=== PATIENT | female | born 1995 | race African-American/Black ===

== ENCOUNTER 2017-10-10 07:38 | Inpatient (IN) | payer OTHER ==
[2017-10-10 08:49] LABS: BASOPHILS # (AUTO) 0.1 10^3/uL (0.0-0.1); BASOPHILS % (AUTO) 1.1 %; EOSINOPHILS # (AUTO) 0.1 10^3/uL (0.0-0.7); HGB - HEMOGLOBIN 9.7 g/dL (12.0-16.0); LYMPHOCYTES # (AUTO) 1.9 10^3/uL (1.5-3.5); LYMPHOCYTES % (AUTO) 24.8 %; MEAN CORPUSCULAR HEMOGLOBIN 26.6 pg (27.0-31.0); MEAN CORPUSCULAR HGB CONC 31.5 g/dL (32.0-36.0); MEAN CORPUSCULAR VOLUME 84.4 fL (81.0-99.0); MEAN PLATELET VOLUME 9.8 fL (7.9-10.8); MONOCYTES % (AUTO) 13.4 %; NEUTROPHILS # (AUTO) 4.5 10^3/uL (1.5-6.6); NEUTROPHILS % (AUTO) 58.7 %; PLT - PLATELET COUNT 280 10^3/uL (130-450); RED BLOOD COUNT 3.66 10^6/uL (4.20-5.40); RED CELL DISTRIBUTION WIDTH 16.8 % (12.0-15.0); WHITE BLOOD COUNT 7.7 x10^3/uL (4.8-10.8)
[2017-10-10 08:54] LABS: URIC ACID 7.8 mg/dL (2.6-7.2)
[2017-10-10] MEDS ORDERED: LACTATED RINGERS 1,000 ML IV ONE ×5 (08:58→12:24)
[2017-10-10 09:10] LABS: PROTEIN/CREATININE RATIO,URINE 15.3 (<=0.2)
[2017-10-10] MEDS ORDERED: SODIUM CHLORIDE FLUSH 0.9% 10 ML SYRINGE IVP PRN ×2 (09:19→11:56)
[2017-10-10] MEDS: MAGNESIUM SULFATE 2 GRAM 2 GM/50 ML BAG IV SCH ×2 (09:40→10:00)
[2017-10-10] MEDS ORDERED: MAGNESIUM SULFATE 2 GRAM 4 GM/100 ML BAG IV ONE (09:42)
[2017-10-10] MEDS ORDERED: MAGNESIUM SULFATE IN WATER 20 GM/500 ML IV.SOLN IV ONE ×2 (09:43→22:25)
[2017-10-10] MEDS ORDERED: LACTATED RINGERS 1,000 ML IV SCH (10:00)
[2017-10-10] MEDS ORDERED: CITRIC ACID/SODIUM CITRATE 15 ML UDC PO ONE (10:08)
[2017-10-10] MEDS ORDERED: MAGNESIUM SULFATE IN WATER 20 GM/500 ML IV.SOLN IV SCH (10:10)
[2017-10-10] MEDS ORDERED: diphenhydrAMINE 25 MG CAPSULE PO PRN (12:01)
[2017-10-10] MEDS ORDERED: ONDANSETRON 4 MG/2 ML VIAL IVP PRN (12:01)
[2017-10-10] MEDS ORDERED: oxyCOD/ACETAMIN 5 MG/325 MG TABLET PO PRN ×2 (12:01→12:16)
[2017-10-10] MEDS ORDERED: OXYTOCIN 10 UNIT/ML VIAL IVP ONE (12:17)
[2017-10-10] MEDS ORDERED: MAGNESIUM SULFATE 1 GM/2 ML VIAL IV ONE (13:00)
--- NOTE | 2017-10-10 13:09 | PROCEDURE REPORT ---
Hospitalist Procedure Note - Procedure Note Procedure Note: POST-OPERATIVE NOTE: PRE-OP DX: 39 WEEKS, PREECLAMPSIA WITH SEVERE FEATURES, NON-REASSURING HEART TRACING (CATEGORY 3) POST-OP DX: SAME SURGERY: LUST SURGEON: CATALINO MANUFACTURING APPLICATIONS ENGINEER: DUNCAN BIOMEDICAL EQUIPMENT SUPPORT SPECIALIST: TAB ANS: SPINAL FINDINGS: NORMAL ADNEXL BL WITH CLEAR AMNIOTIC FLUID UPON ENTRY INTO UTERINE CAVITY, NO ADHESIONS, VIABLE FEMALE (WT. PENDING) WITH SCORE 9/9 DELIVERED AT 1044 HOURS. DRAIN: NEFF SPECIMEN: CORD GASES FLUIDS (ML): LR 1,000 EBL 600 UO 130 COMPLICATION: NONE CONDITION: STABLE
[2017-10-10] MEDS: KETOROLAC 30 MG/ML VIAL IV SCH ×2 (13:17→17:15)
--- NOTE | 2017-10-10 14:09 | HISTORY & PHYSICAL EXAMINATION ---
Chief Complaint - Chief Complaint Chief Complaint: VISUAL CHANGES History of Present Illness - Admitted From Admitted From:: HOME TO [facility] - History Obtained From Records Reviewed: YES History obtained from: PATIENT Exam Limitations: NONE - History of Present Illness HPI Comment/Other: 21 y.o. AD [place] EDC 10/17/17 by LMP 01/10/17 and first and second trim US that agree, admitted shortly presentation to [facility] triage with dx of preeclampsia with severe features further complicated by Category 2 then Category 3 FHR tracing with mild and regular uterine contractions and closed cervix in clinic two days prior. She was admitted for immediate Section. OB recoreds available show unremarkable 13 and 20 week US with normal anatomic survey. Also had normal first trimester NIPT Negative. Labs: Initial OB panel unavailable. 28 weeks labs unavailable GBS + 10/02/17 Wet prep + for yeast 10/02/17 (treated) Wet prep + for BV not treated per patient hx PMH: Neg PSH: Neg SHx: Neg for smoking/etoh/drugs Meds: PNV KNDA History - Past Medical History Cardiovascular: reports: None Respiratory: reports: None Neuro: reports: None Endocrine/Autoimmune: reports: None GI: reports: None STAFF ASSISTANT: reports: None : reports: None HEENT: reports: None Psych: reports: None Musculoskeletal: reports: None Derm: reports: None - Past Surgical History Other past surgical history: NONE Meds/Allgy - Allergies Allergies/Adverse Reactions: Allergies Allergy/AdvReac Type Severity Reaction Status Date / Time No Known Drug Allergies Allergy Verified 10/10/17 14:11 Review of Systems - Eyes Eyes: reports: Blurred vision - Musculoskeletal Musculoskeletal: reports: Other (MARKED SWELLING IN BOTH LOWER EXTREMITIES) Exam - Vital Signs Vital Signs: Vital Signs x48h Temp Pulse Resp BP Pulse Ox 10/10/17 12:55 36.8 C 71 18 148/99 H 98 10/10/17 12:30 100 10/10/17 12:10 98 10/10/17 12:00 98 10/10/17 11:58 98 10/10/17 11:50 98 10/10/17 11:42 100 10/10/17 07:54 36.8 C 97 18 140/101 H 98 - Physical Exam General Appearance: positive: Mild distress Eyes Bilateral: positive: Normal inspection ENT: positive: ENT inspection nml Neck: positive: Nml inspection Respiratory: positive: Chest non-tender Cardiovascular: positive: Regular rate & rhythm Abdomen: positive: Non-tender Back: positive: Nml inspection Skin: positive: Color nml, No rash, Warm Extremities: positive: Pedal edema, Other (BL MARKED PEDAL AND LOWER EXTREMITY EDEMA CONSISTENT WITH DX) Conclusion/Plan - Lab Results Fish Bones: 10/10/17 08:38 Core Measures - Anticipated LOS I expect patient to be DC'd or transferred within 96 hours.: Yes - Issues Hospital Issues and Management Plan: IMPRESSION/PLAN: # 21 yo 39 0/7 weeks by good dates # Preeclampsia with severe features based on bp, labs, symptoms # Category 3 heart rate tracing at its worst far from delivery # Admit for immediate Section. Standard orders. Membranes intact. Peds to be notified about +GBS status. # OB labs unavailable except for 37+ week GBS testing and wet prep and first trim NIPT and 13 and 20 wk US OB panel ordered post-delivery. Plan: Immediate Section. See permit. - DVT/VTE - Prophylaxis VTE/DVT Device ordered at admit?: No Not Ordered - Low Risk: Low Risk
[2017-10-10 14:20] LABS: CALCIUM 7.4 mg/dL (8.5-10.3); CREATININE 0.6 mg/dL (0.4-1.0)
[2017-10-10] MEDS: LABETALOL 100 MG TABLET PO SCH ×2 (15:47→18:38)
[2017-10-10] MEDS: SIMETHICONE CHEW 80 MG TABLET PO SCH ×2 (15:47→22:19)
[2017-10-10] MEDS ORDERED: diphenhydrAMINE INJ 50 MG/ML VIAL IVP PRN (16:06)
[2017-10-10] MEDS ORDERED: SODIUM CHLORIDE FLUSH 0.9% 10 ML SYRINGE IVP SCH (17:00)
[2017-10-10] MEDS: LACTATED RINGERS 1,000 ML IV SCH ×2 (17:31→22:19)
--- NOTE | 2017-10-10 18:20 | OPERATIVE REPORT ---
DATE OF SERVICE: 10/10/2017 Physician: Bertin Savage DO PREOPERATIVE DIAGNOSES 1. 39 weeks gestation. 2. Preeclampsia with severe features. 3. Nonreassuring heart rate tracing (category 3). POSTOPERATIVE DIAGNOSIS 1. 39 weeks gestation. 2. Preeclampsia with severe features. 3. Nonreassuring heart rate tracing (category 3). SURGERY PERFORMED: Low transverse section. SURGEON: Bertin Savage D.O. HEALTHCARE RECEPTIONIST: Razia Nova CNM. FELTING MACHINE OPERATOR HELPER: Karishma Crabtree CRNA. ANESTHESIA: Spinal. INTRAOPERATIVE FINDINGS: Normal adnexa bilaterally with clear amniotic fluid upon entry into the uterine cavity, there were no pelvic adhesions. The delivery was productive of a viable female infant with Apgars of 9 and 9 that delivered at 10:44 hours. Weight is pending at the time of this dictation. DRAIN: A Castellano. SPECIMEN SUBMITTED: Cord gases, results not available at this time. INTRAOPERATIVE FLUIDS: Lactated ringers 1000 mL. ESTIMATED BLOOD LOSS: 600 mL. URINE OUTPUT: 130 mL. COMPLICATIONS: None. CONDITION: Stable. DESCRIPTION OF PROCEDURE: The patient was thoroughly counseled and consented prior to surgery. She was taken to the operating room where she was anesthetized successfully with a spinal anesthesia, placed in supine position with a right hip roll, prepped and draped in routine fashion with a Castellano catheter in place and adequate anesthetic level was confirmed. A timeout was then performed according to hospital policy. A Pfannenstiel incision was made. Sharp dissection was carried down to the level of the fascia, which was nicked on both sides of the midline. The fascial incision was extended laterally and upward sharply. The peritoneal cavity was entered bluntly. Bladder blade inserted. A bladder flap created and a low transverse uterine incision was made sharply with the scalpel, which was extended laterally and upwards with bandage scissors prior to rupture of membranes. The amniotic membranes were ruptured. Clear fluid was noted. The head was elevated easily through the uterine incision and with fundal pressure the infant was delivered through the uterine incision without complication. The umbilical cord was clamped x2, cut between the clamps and the infant was handed to the loan coordinator. The patient received 2 grams of IV Ancef preoperatively. After the was handed to the loan coordinator, a segment of umbilical cord was set aside for cord gases. Cord blood was obtained. The placenta delivered spontaneously. The uterus was exteriorized with a moist laparotomy sponge. The uterine incision was closed with 2 layers of running #1 chromic, followed by several figure of eight sutures of #1 chromic for hemostasis. The posterior and anterior gutters were suctioned and noted to be dry. The pericolic gutters were free of fluid and clots. The uterine incision was inspected and noted to be dry. Peritoneal edges and muscle bellies were dry. All instruments were removed from the abdomen and pelvis. The fascia was closed with a running #1 Vicryl. The subcutaneous fat irrigated, suctioned and noted to be dry. The skin was reapproximated with a running subcuticular suture of 3-0 Monocryl, followed by Steri-Strips and sterile dressing. All sponge, needle and instrument counts were correct. The patient was transferred to the recovery area in good condition. TD: 10/10/2017 13:54 YOLANDA
[2017-10-10 19:08] LABS: BASOPHILS % (AUTO) 0.3 %; EOSINOPHILS % (AUTO) 0.1 %; LYMPHOCYTES # (AUTO) 1.1 10^3/uL (1.5-3.5); LYMPHOCYTES % (AUTO) 8.9 %; MEAN CORPUSCULAR HEMOGLOBIN 26.5 pg (27.0-31.0); MEAN CORPUSCULAR HGB CONC 31.3 g/dL (32.0-36.0); MEAN CORPUSCULAR VOLUME 84.7 fL (81.0-99.0); MEAN PLATELET VOLUME 9.6 fL (7.9-10.8); MONOCYTES # (AUTO) 1.1 10^3/uL (0.0-1.0); MONOCYTES % (AUTO) 9.2 %; NEUTROPHILS # (AUTO) 9.9 10^3/uL (1.5-6.6); NEUTROPHILS % (AUTO) 81.5 %; PLT - PLATELET COUNT 257 10^3/uL (130-450); RED BLOOD COUNT 3.03 10^6/uL (4.20-5.40); RED CELL DISTRIBUTION WIDTH 16.4 % (12.0-15.0); WHITE BLOOD COUNT 12.1 x10^3/uL (4.8-10.8)
[2017-10-10 19:22] LABS: URIC ACID 7.3 mg/dL (2.6-7.2)
[2017-10-10] MEDS: SODIUM CHLORIDE FLUSH 0.9% 10 ML SYRINGE IVP SCH (20:11)
[2017-10-10] MEDS ORDERED: DOCUSATE SODIUM 100 MG CAPSULE PO SCH (21:00)
[2017-10-11] MEDS: SODIUM CHLORIDE FLUSH 0.9% 10 ML SYRINGE IVP SCH ×3 (03:07→20:09)
[2017-10-11] MEDS: KETOROLAC 30 MG/ML VIAL IV SCH ×2 (03:07→08:57)
[2017-10-11] MEDS: LACTATED RINGERS 1,000 ML IV SCH ×2 (03:07→18:13)
[2017-10-11] MEDS: LABETALOL 100 MG TABLET PO SCH ×3 (03:08→20:05)
[2017-10-11 06:12] LABS: BASOPHILS % (AUTO) 0.1 %; EOSINOPHILS # (AUTO) 0.1 10^3/uL (0.0-0.7); EOSINOPHILS % (AUTO) 0.8 %; HGB - HEMOGLOBIN 7.7 g/dL (12.0-16.0); LYMPHOCYTES # (AUTO) 1.4 10^3/uL (1.5-3.5); LYMPHOCYTES % (AUTO) 12.7 %; MEAN CORPUSCULAR HEMOGLOBIN 26.3 pg (27.0-31.0); MEAN CORPUSCULAR HGB CONC 31.1 g/dL (32.0-36.0); MEAN CORPUSCULAR VOLUME 84.5 fL (81.0-99.0); MEAN PLATELET VOLUME 9.3 fL (7.9-10.8); MONOCYTES # (AUTO) 1.6 10^3/uL (0.0-1.0); MONOCYTES % (AUTO) 14.6 %; NEUTROPHILS # (AUTO) 8.1 10^3/uL (1.5-6.6); NEUTROPHILS % (AUTO) 71.8 %; PLT - PLATELET COUNT 240 10^3/uL (130-450); RED BLOOD COUNT 2.94 10^6/uL (4.20-5.40); RED CELL DISTRIBUTION WIDTH 16.5 % (12.0-15.0); WHITE BLOOD COUNT 11.3 x10^3/uL (4.8-10.8)
[2017-10-11 06:22] LABS: URIC ACID 7.6 mg/dL (2.6-7.2)
[2017-10-11] MEDS: SIMETHICONE CHEW 80 MG TABLET PO SCH ×3 (06:48→20:06)
--- NOTE | 2017-10-11 08:29 | PROVIDER PROGRESS NOTE ---
Subjective - Prog Note Date Prog Note Date: 10/11/17 Prog Note Time: 08:25 - Subjective Pt reports feeling: Improved Subjective: LOADING INSPECTOR: S: POD 1 s/p LUST C/S for Category 3 tracing far from delivery, Preeclampsia with severe features. Visual changes resolved, tolerating diet, having difficulty with swallowing pills. O: VSS/AF, beginning to diurese at 350 mL/hr See labs CV RRR LCTAB ABD SNT, Ux firm U-6, dressing firm : normal lochia MS/NM: N/C, SCDs on, decreased swelling in legs from yesterday, patient feels less pain from swellin also. A/P: POD #1 doing well D/C IV magnesium sulfate at 1200 Ambulate after off magnesium sulfate D/C smith once ambulatory Switch to liquid meds instead of pill for patient convenience saline lock once off IV magnesium sulfate Remove dressing after patient showers Objective - Vital Signs/Intake & Output Vital Signs: Vital Signs x48h Temp Pulse Resp BP Pulse Ox 10/11/17 06:46 20 125/88 H 10/11/17 02:55 36.4 C L 84 15 143/85 H 98 Intake & Output: Intake & Output 10/08/1718 10/10/17 10/11/17 23:59 23:59 23:59 23:59 Intake Total 1440 960 Output Total 935 825 Balance 505 135 - Lab Results Fish Bones: 10/11/17 06:00 10/10/17 14:00 Other Labs: Lab Results x24hrs 10/11/17 10/11/17 10/11/17 Range/Units 06:00 06:00 06:00 WBC 11.3 H (4.8-10.8) x10^3/uL RBC 2.94 L (4.20-5.40) 10^6/uL Hgb 7.7 L (12.0-16.0) g/dL Hct 24.9 L (37.0-47.0) % MCV 84.5 (81.0-99.0) fL MCH 26.3 L (27.0-31.0) pg MCHC 31.1 L (32.0-36.0) g/dL RDW 16.5 H (12.0-15.0) % Plt Count 240 (130-450) 10^3/uL MPV 9.3 (7.9-10.8) fL Neut # (Auto) 8.1 H (1.5-6.6) 10^3/uL Lymph # (Auto) 1.4 L (1.5-3.5) 10^3/uL [place] # (Auto) 1.6 H (0.0-1.0) 10^3/uL Eos # (Auto) 0.1 (0.0-0.7) 10^3/uL Baso # (Auto) 0.0 (0.0-0.1) 10^3/uL Absolute Nucleated RBC 0.03 x10^3/uL Nucleated RBC % 0.2 /100WBC Sodium (135-145) mmol/L Potassium (3.5-5.0) mmol/L Chloride (101-111) mmol/L Carbon Dioxide (21-32) mmol/L Anion Gap (6-13) BUN (6-20) mg/dL Creatinine (0.4-1.0) mg/dL Estimated GFR (MDRD) (>89) Glucose (70-100) mg/dL Uric Acid 7.6 H (2.6-7.2) mg/dL Calcium (8.5-10.3) mg/dL AST 33 (10-42) IU/L Lactate Dehydrogenase 359 H (91-225) IU/L Urine Creatinine mg/dL Ur Total Protein Timed mg/dL Protein/Creatinin Ratio (<=0.2) Rubella IgG Antibody IU/mL Blood Type 10/10/17 10/10/17 10/10/17 Range/Units 19:00 19:00 19:00 WBC 12.1 H (4.8-10.8) x10^3/uL RBC 3.03 L (4.20-5.40) 10^6/uL Hgb 8.0 L (12.0-16.0) g/dL Hct 25.7 L (37.0-47.0) % MCV 84.7 (81.0-99.0) fL MCH 26.5 L (27.0-31.0) pg MCHC 31.3 L (32.0-36.0) g/dL RDW 16.4 H (12.0-15.0) % Plt Count 257 (130-450) 10^3/uL MPV 9.6 (7.9-10.8) fL Neut # (Auto) 9.9 H (1.5-6.6) 10^3/uL Lymph # (Auto) 1.1 L (1.5-3.5) 10^3/uL [place] # (Auto) 1.1 H (0.0-1.0) 10^3/uL Eos # (Auto) 0.0 (0.0-0.7) 10^3/uL Baso # (Auto) 0.0 (0.0-0.1) 10^3/uL Absolute Nucleated RBC 0.01 x10^3/uL Nucleated RBC % 0.1 /100WBC Sodium (135-145) mmol/L Potassium (3.5-5.0) mmol/L Chloride (101-111) mmol/L Carbon Dioxide (21-32) mmol/L Anion Gap (6-13) BUN (6-20) mg/dL Creatinine (0.4-1.0) mg/dL Estimated GFR (MDRD) (>89) Glucose (70-100) mg/dL Uric Acid 7.3 H (2.6-7.2) mg/dL Calcium (8.5-10.3) mg/dL AST 31 (10-42) IU/L Lactate Dehydrogenase 296 H (91-225) IU/L Urine Creatinine mg/dL Ur Total Protein Timed mg/dL Protein/Creatinin Ratio (<=0.2) Rubella IgG Antibody IU/mL Blood Type 10/10/17 10/10/17 10/10/17 Range/Units 14:00 14:00 14:00 WBC (4.8-10.8) x10^3/uL RBC (4.20-5.40) 10^6/uL Hgb (12.0-16.0) g/dL Hct (37.0-47.0) % MCV (81.0-99.0) fL MCH (27.0-31.0) pg MCHC (32.0-36.0) g/dL RDW (12.0-15.0) % Plt Count (130-450) 10^3/uL MPV (7.9-10.8) fL Neut # (Auto) (1.5-6.6) 10^3/uL Lymph # (Auto) (1.5-3.5) 10^3/uL [place] # (Auto) (0.0-1.0) 10^3/uL Eos # (Auto) (0.0-0.7) 10^3/uL Baso # (Auto) (0.0-0.1) 10^3/uL Absolute Nucleated RBC x10^3/uL Nucleated RBC % /100WBC Sodium 133 L (135-145) mmol/L Potassium 3.4 L (3.5-5.0) mmol/L Chloride 103 (101-111) mmol/L Carbon Dioxide 22 (21-32) mmol/L Anion Gap 8.0 (6-13) BUN 5 L (6-20) mg/dL Creatinine 0.6 (0.4-1.0) mg/dL Estimated GFR (MDRD) 154 (>89) Glucose 94 (70-100) mg/dL Uric Acid (2.6-7.2) mg/dL Calcium 7.4 L (8.5-10.3) mg/dL AST (10-42) IU/L Lactate Dehydrogenase (91-225) IU/L Urine Creatinine mg/dL Ur Total Protein Timed mg/dL Protein/Creatinin Ratio (<=0.2) Rubella IgG Antibody 19 (POS) IU/mL Blood Type O POSITIVE 10/10/17 10/10/17 10/10/17 Range/Units 08:38 08:38 08:38 WBC 7.7 (4.8-10.8) x10^3/uL RBC 3.66 L (4.20-5.40) 10^6/uL Hgb 9.7 L (12.0-16.0) g/dL Hct 30.9 L (37.0-47.0) % MCV 84.4 (81.0-99.0) fL MCH 26.6 L (27.0-31.0) pg MCHC 31.5 L (32.0-36.0) g/dL RDW 16.8 H (12.0-15.0) % Plt Count 280 (130-450) 10^3/uL MPV 9.8 (7.9-10.8) fL Neut # (Auto) 4.5 (1.5-6.6) 10^3/uL Lymph # (Auto) 1.9 (1.5-3.5) 10^3/uL [place] # (Auto) 1.0 (0.0-1.0) 10^3/uL Eos # (Auto) 0.1 (0.0-0.7) 10^3/uL Baso # (Auto) 0.1 (0.0-0.1) 10^3/uL Absolute Nucleated RBC 0.06 x10^3/uL Nucleated RBC % 0.8 /100WBC Sodium (135-145) mmol/L Potassium (3.5-5.0) mmol/L Chloride (101-111) mmol/L Carbon Dioxide (21-32) mmol/L Anion Gap (6-13) BUN (6-20) mg/dL Creatinine (0.4-1.0) mg/dL Estimated GFR (MDRD) (>89) Glucose (70-100) mg/dL Uric Acid 7.8 H (2.6-7.2) mg/dL Calcium (8.5-10.3) mg/dL AST 26 (10-42) IU/L Lactate Dehydrogenase 257 H (91-225) IU/L Urine Creatinine mg/dL Ur Total Protein Timed mg/dL Protein/Creatinin Ratio (<=0.2) Rubella IgG Antibody IU/mL Blood Type 10/10/17 Range/Units 08:25 WBC (4.8-10.8) x10^3/uL RBC (4.20-5.40) 10^6/uL Hgb (12.0-16.0) g/dL Hct (37.0-47.0) % MCV (81.0-99.0) fL MCH (27.0-31.0) pg MCHC (32.0-36.0) g/dL RDW (12.0-15.0) % Plt Count (130-450) 10^3/uL MPV (7.9-10.8) fL Neut # (Auto) (1.5-6.6) 10^3/uL Lymph # (Auto) (1.5-3.5) 10^3/uL [place] # (Auto) (0.0-1.0) 10^3/uL Eos # (Auto) (0.0-0.7) 10^3/uL Baso # (Auto) (0.0-0.1) 10^3/uL Absolute Nucleated RBC x10^3/uL Nucleated RBC % /100WBC Sodium (135-145) mmol/L Potassium (3.5-5.0) mmol/L Chloride (101-111) mmol/L Carbon Dioxide (21-32) mmol/L Anion Gap (6-13) BUN (6-20) mg/dL Creatinine (0.4-1.0) mg/dL Estimated GFR (MDRD) (>89) Glucose (70-100) mg/dL Uric Acid (2.6-7.2) mg/dL Calcium (8.5-10.3) mg/dL AST (10-42) IU/L Lactate Dehydrogenase (91-225) IU/L Urine Creatinine 107.0 mg/dL Ur Total Protein Timed 1638 mg/dL Protein/Creatinin Ratio 15.3 H (<=0.2) Rubella IgG Antibody IU/mL Blood Type
[2017-10-11] MEDS ORDERED: MAGNESIUM SULFATE 2 GRAM 2 GM/50 ML BAG IV ONE ×2 (08:35→10:41)
[2017-10-11] MEDS: DOCUSATE SODIUM 100 MG/10 ML UDC PO SCH ×2 (08:57→20:47)
[2017-10-11] MEDS ORDERED: ePHEDrine 50 MG/ML AMP IVP ONE (11:00)
[2017-10-11] MEDS ORDERED: OXYTOCIN 10 UNIT/ML VIAL IV ONE (11:00)
[2017-10-11] MEDS ORDERED: MORPHINE PF 5 MG/10 ML AMP EP ONE (11:00)
[2017-10-11] MEDS ORDERED: ONDANSETRON 4 MG/2 ML VIAL IVP ONE (11:00)
[2017-10-11 13:28] LABS: HIV AG/AB 4TH GEN NON-REACTIVE (NON-REACTIVE)
[2017-10-11 13:44] LABS: HEPATITIS B SURFACE ANTIGEN NON-REACTIVE (NON-REACTIVE)
[2017-10-11] MEDS: IBUPROFEN 100 MG/5 ML UDC PO PRN ×2 (15:05→23:42)
[2017-10-11] MEDS: ACETAMINOPHEN 160 MG/5 ML SUSP UDC PO PRN ×2 (16:09→20:07)
[2017-10-11] MEDS: oxyCODONE 10 MG/0.5 ML SYRINGE PO PRN ×3 (16:10→23:45)
[2017-10-11] MEDS: MAGNESIUM HYDROXIDE 2,400 MG/30 ML UDC PO PRN (20:54)
[2017-10-12] MEDS: SODIUM CHLORIDE FLUSH 0.9% 10 ML SYRINGE IVP SCH ×3 (04:36→17:03)
[2017-10-12] MEDS: oxyCODONE 10 MG/0.5 ML SYRINGE PO PRN ×6 (04:47→22:04)
[2017-10-12] MEDS: ACETAMINOPHEN 160 MG/5 ML SUSP UDC PO PRN ×5 (04:47→20:47)
[2017-10-12] MEDS: LACTATED RINGERS 1,000 ML IV SCH ×2 (04:53→17:00)
[2017-10-12] MEDS: LABETALOL 100 MG TABLET PO SCH ×2 (08:07→19:44)
[2017-10-12] MEDS: IBUPROFEN 100 MG/5 ML UDC PO PRN ×2 (08:09→15:44)
[2017-10-12] MEDS: SIMETHICONE CHEW 80 MG TABLET PO SCH ×3 (08:42→22:13)
[2017-10-12] MEDS: DOCUSATE SODIUM 100 MG/10 ML UDC PO SCH ×2 (12:27→20:59)
--- NOTE | 2017-10-12 12:31 | PROVIDER PROGRESS NOTE ---
Subjective - Prog Note Date Prog Note Date: 10/12/17 Prog Note Time: 12:23 - Subjective Pt reports feeling: Improved Subjective: GEOLOGICAL SURVEY FIELD ASSISTANT: POD #2 S/P LUST C/S FOR CATEGORY 3 TRACING, PREECLAMPSIA WITH SEVERE FEATURES FAR FROM DELIVERY S: Patient c/o pain medication not lasting full 4 hours, currently on liquid oxycodone q4h. Called by nurse this AM due to sytolic bp in 160s and diastolic bp 109. Labetolol doubled from 100 mg bid to 200 mg bid. BP now normalized. Patient otherwise feels well. States pain/edema in both lower extremities have gone down markedly, pain was rated 10/10 upon presentation, now 3/10. O: VSS/AF CV RRR LCTAB ABD SNT, UX firm U-8 and NT Incision clean and dry without erythema : normal lochia MS/NM: SCDs on, both LE with markedly less edema than admission UO 4750 mL and 2825 mL last 48 and 24 hours respectively A/P: # HTN: Labetolol increased to 200 MG bid # Pain Control: Oxycodone dosing interval shortened to 3H # Wlll keep patient another day for observation and bp management. Patient understands and agrees. Objective - Vital Signs/Intake & Output Vital Signs: Vital Signs x48h Temp Pulse Resp BP Pulse Ox 10/12/17 09:39 125/86 H 10/12/17 07:53 169/109 H 10/12/17 07:50 36.8 C 84 16 158/109 H 100 10/12/17 04:32 36.5 C 89 18 141/96 H 98 Intake & Output: Intake & Output 10/09/17 10/10/17 10/11/17 10/12/17 23:59 23:59 23:59 23:59 Intake Total 1440 3256.667 1200 Output Total 935 4750 2825 Balance 505 1493.333 -6765 - Lab Results Fish Bones: 10/11/17 06:00 10/10/17 14:00 Other Labs: Lab Results x24hrs 10/10/17 10/10/17 10/10/17 Range/Units 14:00 14:00 12:00 C.trachomatis RNA (TMA) NOT DETECTED (NOT DETECTED) Chlamydia/GC Comment SEE NOTE Hep Bs Antigen NON-REACTIVE (NON-REACTIVE) HIV 1&2 Ag/Ab, 4th Gen NON-REACTIVE (NON-REACTIVE) N.gonorrhoeae RNA (TMA) NOT DETECTED (NOT DETECTED)
[2017-10-12] MEDS: MAGNESIUM HYDROXIDE 2,400 MG/30 ML UDC PO PRN (20:47)
[2017-10-13] MEDS: ACETAMINOPHEN 160 MG/5 ML SUSP UDC PO PRN ×4 (00:18→13:48)
[2017-10-13] MEDS: IBUPROFEN 100 MG/5 ML UDC PO PRN ×2 (00:20→08:28)
[2017-10-13] MEDS: oxyCODONE 10 MG/0.5 ML SYRINGE PO PRN ×4 (01:06→13:48)
[2017-10-13] MEDS: SODIUM CHLORIDE FLUSH 0.9% 10 ML SYRINGE IVP SCH (04:29)
[2017-10-13] MEDS: SIMETHICONE CHEW 80 MG TABLET PO SCH ×3 (05:56→13:48)
[2017-10-13] MEDS: DOCUSATE SODIUM 100 MG/10 ML UDC PO SCH (08:27)
[2017-10-13] MEDS: LABETALOL 100 MG TABLET PO SCH (08:27)
--- NOTE | 2017-10-13 11:47 | Discharge Plan ---
Discharge Plan Disposition: Home, Self Care Condition: Good Prescriptions: Labetalol [Trandate] 100 mg PO DAILY 30 Days #150 tablet Diet: Regular Activity Restrictions: SEE D/C INSTRUCTIONS Shower Restrictions: No Driving Restrictions: Yes (3 WEEKS) Weight Bearing: Full Weight Additional Instructions or Follow Up instructions: FOLLOW UP IN [facility] IN 1,3, AND 6 WEEKS POST OP FOR BOTH BP CHECK AND POST-OP/ CHECKS. No Smoking: If you smoke, Please STOP! Call for help. Follow-up with: John Parker MD [Provider Admit Priv/Credential] -
--- NOTE | 2017-10-13 11:57 | DISCHARGE SUMMARY ---
"Discharge Summary Admit Date: 10/10/17 Discharge Date: 10/13/17 Discharging Provider: CATALINO Code Status: Attempt Resuscitation Condition at Discharge: Good - DIAGNOSES Admission Diagnoses: 39 WEEKS GESTATION NON-REASSURING TRACING, CATEGORY 3 PREECLAMPSIA WITH SEVERE FEATURES Discharge Diagnoses with Status of Each Condition: 39 WEEKS GESTATION, DELIVERED, GOOD CONDITION PREECLAMPSIA WITH SEVERE FEATURES, DELIVERED, STABLE - HPI History of Present Illness: [address] [id number] 21 y.o. AD [place] EDC 10/17/17 by LMP 01/10/17 and first and second trim US that agree, admitted shortly presentation to [facility] triage with dx of preeclampsia with severe features further complicated by Category 2 then Category 3 FHR tracing with mild and regular uterine contractions and closed cervix in clinic two days prior. She was admitted for immediate Section. OB recoreds available show unremarkable 13 and 20 week US with normal anatomic survey. Also had normal first trimester NIPT Negative. Labs: Initial OB panel unavailable. 28 weeks labs unavailable GBS + 10/02/17 Wet prep + for yeast 10/02/17 (treated) Wet prep + for BV not treated per patient hx PMH: Neg PSH: Neg SHx: Neg for smoking/etoh/drugs Meds: PNV KNDA History - Past Medical History Cardiovascular: reports: None Respiratory: reports: None Neuro: reports: None Endocrine/Autoimmune: reports: None GI: reports: None SHIRT TRIMMER: reports: None : reports: None HEENT: reports: None Psych: reports: None Musculoskeletal: reports: None Derm: reports: None - Past Surgical History Other past surgical history: NONE Meds/Allgy - Allergies Allergies/Adverse Reactions: Allergies Allergy/AdvReac Type Severity Reaction Status Date / Time No Known Drug Allergies Allergy Verified 10/10/17 14:11 - CONSULTS | PROCEDURES Procedures: SPINAL ANESTHESIA LOW TRANSVERSE - HOSPITAL COURSE Hospital Course: The patient was admitted to the hospital, started on IV Magnesium Sulfate Prophylaxis for Preeclampsia with severe features and counseled and consented for immediate Section for Category 3 tracing far from delivery. Her preeclamptic labs on admission were as follows: HCT/PLT: 30.9/280 Uric Acid 7.8 AST 26 LDH 257 Protein/Creatinine Ratio 15.3 She had an uncomplicated LUST productive of a viable female (7 lbs. 6 onz) with 9/9. Post-operatively she did well. She was on IV Magnesium Sulfate for 24 hours post-op and required oral labetolol for bp control beginning the afternoon of surgery, initially at 100 mg bid and subsequently increased to 200 mg bid. Discharged home on 200 mg in AM, 100 mg at noon, and 200 mg in PM. Discharged home on POD #3. OB panel labs drawn on admission as follows: T Pallidum IgG: Neg GC/CT: Neg x 2 HBsAg: NR HIV: NR Rubella: POS - ALLERGIES Allergies/Adverse Reactions: Allergies Allergy/AdvReac Type Severity Reaction Status Date / Time No Known Drug Allergies Allergy Verified 10/10/17 14:11 - MEDICATIONS Home Medications: Ambulatory Orders Medication Instructions Recorded Confirmed Ibuprofen 600 mg PO Q6H PRN 10/13/17 10/13/17 Labetalol [Trandate] 100 mg PO DAILY 30 Days #150 tablet 10/13/17 oxyCODONE/ACET 5/325 [Percocet 5 5 mg PO Q6H PRN 10/13/17 10/13/17 mg/325 mg] Home Medications Other | Comments: VITAMINS: ONE PO DAILY - PHYSICAL EXAM AT DISCHARGE General Appearance: positive: No acute distress, Alert Eyes Bilateral: positive: Normal inspection ENT: positive: ENT inspection nml Neck: positive: Nml inspection Respiratory: positive: Chest non-tender, No respiratory distress, Breath sounds nml Cardiovascular: positive: Regular rate & rhythm, No murmur, No gallop Peripheral Pulses: positive: 2+ Abdomen: positive: Non-tender, Other (UX FIRM U-8, INCISION CLEAN AND DRY WITHOUT ERYTHEMA, STERIS INTACT) Back: positive: Nml inspection Skin: positive: Color nml, No rash, Warm Extremities: positive: Non-tender, Full ROM, Pedal edema (LOWER EXTREMITY EDEMA MARKEDLY LESS, NO CALF PAIN) - LABS Result Diagrams: 10/11/17 06:00 10/10/17 14:00 - FOLLOW UP Follow Up: FOLLOW UP IN [facility] IN 1,3, AND 6 WEEKS FOR BP AND POST- OP CHECKS. - TIME SPENT Time Spent in Discharge (Minutes): 90"
[2017-10-13 14:44] VITALS: BP 138/95
== END 2017-10-13 14:25 | disposition home or self-care (01) | DRG 766 ==
LOC: WFO 07:38 → FBP 07:40 → WFO 09:18 → FBP 09:19
PROVIDERS: ADMIT Obstetrics & Gynecology; ATTEND Obstetrics & Gynecology
PROC: 10D00Z1 Extraction of Products of Conception, Low, Open Approach (ICD-10-PCS; principal; 2017-10-10 09:30)
DX: O14.14 Severe pre-eclampsia complicating childbirth (principal); O99.824 Streptococcus B carrier state complicating childbirth; O76 Abnormality in fetal heart rate and rhythm complicating labor and delivery; Z3A.39 39 weeks gestation of pregnancy; Z37.0 Single live birth
CPT/HCPCS: 36415; 80048; 82570; 82803; 83615; 84156; 84450; 84550; 85025; 86762; 86780; 86900; 86901; 87340; 87389; 87491; 87591; 99213

== ENCOUNTER 2017-10-15 10:44 | Outpatient (CLI) | payer OTHER ==
--- NOTE | 2017-10-15 11:46 | PROVIDER PROGRESS NOTE ---
Subjective - Prog Note Date Prog Note Date: 10/15/17 Prog Note Time: 11:38 - Subjective Pt reports feeling: Improved Subjective: PIPELINE SYSTEMS OPERATOR EMERGENCY COMMUNICATIONS OPERATOR: S: 21 yo s/p C/S 10/10/17 for preeclampsia with severe features and category 3 FHR tracing far from delivery. Patient placed on Labetolol post-op, d /c home 10/13/17 on Labetolol in divided doses of 200 mg...100 mg...200 mg. Comes in to clinic today for first of three follow up visits (1,3, 6 wk pp). Sent over to [facility] from [facility] due to concerns regarding bp and lower extremity edema. Patient without visual changes or h/a. LE edema is actually markedly improved from hospital admission, during which time her edema extended half way up her thighs and both LE were painfully distended. O: VSS/AF BP here 142/104 and 126/94, pulse 90s, R 18, 02 sat RA 98% LCTAB CV RRR ABD SNT, Ux firm U-6, incision healing well and steris intact : normal lochia MS/NM: patient still has moderate LE edema below the knees, thighs appear normal , no calf pain, no clonus A/P: Patient doing well relative to her condition at time of admission. Will keep on current regimen of labetolol, precautions given to come back for RN PATIENT CARE changes that can occur with increased bp. Large support belt given at patient request. F/U [facility] OB clinic in 2 weeks.
[2017-10-15 12:07] VITALS: BP 142/84
== END 2017-10-15 12:05 | disposition home or self-care (01) ==
LOC: WFO 10:44 → FBP 10:46 → WFO 12:05
PROVIDERS: ATTEND Obstetrics & Gynecology
DX: O16.5 Unspecified maternal hypertension, complicating the puerperium (principal)

== ENCOUNTER 2017-10-20 10:02 | Emergency (ER) | END 2017-10-20 13:08 | disposition home or self-care (01) ==

== ENCOUNTER 2017-11-28 14:57 | Outpatient (CLI) | payer OTHER | END 2017-11-28 14:58 | disposition home or self-care (01) | LOC: LAB.R 14:57 | PROVIDERS: ATTEND Obstetrics & Gynecology | DX: N89.8 Other specified noninflammatory disorders of vagina (principal) | CPT/HCPCS: 87480; 87510; 87660 ==